=== PATIENT | female | born 1980 | race Caucasian/White ===

== ENCOUNTER 2017-05-10 16:37 | Outpatient (CLI) | payer OTHER ==
[2017-05-10 17:12] LABS: Mean Corpuscular HGB CONC 34.9 g/dL (32.0-36.0); Mean Corpuscular Volume 94.4 fl (81.0-99.0); Mean Platelet Volume 7.1 fL (7.4-10.4); Platelet Count 226 thou/uL (130-400); RBC Distribution Width 12.2 % (11.5-14.5); Red Blood Cell (RBC) Count 4.24 mill/uL (4.20-5.40); White Blood Cell (WBC) Count 8.2 thou/uL (4.8-10.8)
[2017-05-10 17:33] LABS: BHCG - Serum Negative (NEGATIVE); Pregs Control Background? CLEAR/WHITE (CLR/WHITE); Pregs Control Bar Appear? YES (CONTROL BAR)
== END 2017-05-10 16:38 | disposition home or self-care (01) ==
LOC: LABBT 16:37
PROVIDERS: ATTEND Student in an Organized Health Care Education/Training Program
DX: Z01.812 Encounter for preprocedural laboratory examination (principal); N84.0 Polyp of corpus uteri; N92.0 Excessive and frequent menstruation with regular cycle
CPT/HCPCS: 84703; 85027; 86850; 86900; 86901

== ENCOUNTER 2017-05-12 10:08 | Day surgery (SDC) | payer OTHER ==
[2017-05-10 17:01] VITALS: BMI 40.8
[2017-05-12] MEDS ORDERED: CEFAZOLIN/Water 2 GM/20 ML SYRINGE ONE (11:18)
[2017-05-12] MEDS ORDERED: Fentanyl 100 MCG/2 ML VIAL ONE ×2 (12:27→13:55)
[2017-05-12] MEDS ORDERED: HYDROmorphone 0.5 MG/0.5 ML SYRINGE ONE (12:28)
[2017-05-12] MEDS ORDERED: Lidocaine 1% PF 5 ML VIAL ONE (15:29)
[2017-05-12] MEDS ORDERED: Ketorolac Tromethamine 30 MG/ML VIAL ONE (15:29)
[2017-05-12] MEDS ORDERED: PROPOFOL 200 MG/20 ML VIAL ONE (15:29)
[2017-05-12] MEDS ORDERED: Ondansetron HCl/PF 4 MG/2 ML Vial ONE (15:29)
[2017-05-12] MEDS ORDERED: Dexamethasone 20 MG/5 ML VIAL ONE (15:29)
--- NOTE | 2017-05-13 09:59 | OP ---
DATE OF PROCEDURE: 05/12/2017 PREOPERATIVE DIAGNOSIS: Menometrorrhagia. POSTOPERATIVE DIAGNOSIS: Menometrorrhagia. PROCEDURES PERFORMED: Hysteroscopy, dilation and curettage and Jennie endometrial ablation. ANESTHESIA: General LMA. ATTENDING SURGEON: Brenda Gonzalez M.D. MEDICAL LIAISON SURGEON: None. ESTIMATED BLOOD LOSS: 10 mL COMPLICATIONS: None. PATHOLOGY: Endometrial curettings. DRAINS: None. FINDINGS: On exam under anesthesia, a normal mobile 8 week size uterus, anteverted, sounded to 8 cm, cavity length of 5. On hysteroscopic exam, there were no intrauterine or endometrial masses or lesi ons. The endometrium had a proliferative appearance. Bilateral tubal ostia were visualized. Follow ing the ablation, there was good tristan noted to all uterine jernigan and the fluid deficit was 0 mL for t he case using normal saline as distention media. OPERATIVE TECHNIQUE: The patient was taken to the operating room where general anesthesia was obtain ed without difficulty. The patient was prepped and draped in a sterile fashion in the dorsal lithoto my position. A speculum was placed in the vagina and the anterior lip of the cervix was grasped with single tooth tenaculum. The uterus was then sounded to 8 cm. The cervix was progressively dilated with Tyrone dilators and the 5 mm hysteroscope was introduced into the uterine cavity using normal sali ne as distention media with the above findings noted. The hysteroscope was then removed and a sharp curettage was performed to all uterine jernigan and sent for final pathology. The Jennie ablation nehal ce was then assembled and the array was inserted into the uterine fundus and the array was deployed n oting adequate width in the green zone on the ablation device. The cervical cap was then inflated an d the cavity check was performed and passed. The ablation was then performed for two full minutes an d the array was collapsed and removed out of the patient. Hysteroscope was then reintroduced noting the tristan and no perforations and removed from the patient. All instruments removed from the vagina. The patient tolerated the procedure well. Sponge, lap, needle counts were correct x2. The patient was taken to recovery room in stable condition.
== END 2017-05-12 14:40 | disposition home or self-care (01) ==
LOC: SDC 10:08
PROVIDERS: ATTEND Student in an Organized Health Care Education/Training Program
PROC: 0U5B8ZZ Destruction of Endometrium, Via Natural or Artificial Opening Endoscopic (ICD-10-PCS; principal; 2017-05-12)
PROC: 0UDB7ZX Extraction of Endometrium, Via Natural or Artificial Opening, Diagnostic (ICD-10-PCS; principal; 2017-05-12)
DX: N84.0 Polyp of corpus uteri (principal); N92.1 Excessive and frequent menstruation with irregular cycle; F17.210 Nicotine dependence, cigarettes, uncomplicated; E66.9 Obesity, unspecified; Z68.39 Body mass index [BMI] 39.0-39.9, adult; Z79.899 Other long term (current) drug therapy; Z80.3 Family history of malignant neoplasm of breast; Z80.41 Family history of malignant neoplasm of ovary; Z98.51 Tubal ligation status; Z98.891 History of uterine scar from previous surgery
CPT/HCPCS: 88305; 96374; J1100; J1170; J1885; J2001; J2405; J2704; J3010

== ENCOUNTER 2018-09-08 17:00 | Outpatient (CLI) | payer BC | END 2018-09-08 17:01 | disposition home or self-care (01) | LOC: SLEEPLAB 17:00 | PROVIDERS: ATTEND Family Medicine | DX: G47.33 Obstructive sleep apnea (adult) (pediatric) (principal); E66.9 Obesity, unspecified; R06.83 Snoring | CPT/HCPCS: 95806 ==